=== PATIENT | male | born 1950 | race Caucasian/White ===

== ENCOUNTER → 2017-03-21 | Outpatient (CLI) | payer OTHER ==
[~2017-03-21] MED LIST: JANUMET 50-501 UDTAB PO; LOSARTAN-HCTZ1 EAC1 PO; ZOCOR10 MG PO
--- NOTE | ~2017-03-21 | US11 ---
[facility] A Service of [facility] & [facility] RADIOLOGY TEXT RESULTS PATIENT: ERIN PINEDA LOCATION: [facility] : 52 UNIT #: [id number] AGE: [address]: Domingo Wolfe MD SEX: M ORDER DR: [id number] [facility] [address] [place], [place] [address] [id number] O MR#: [id number] Acc #: [id number] NAME: ERIN PINEDA : 1950 SEX: M STUDY DATE/TIME: 03/21/2017 9:02 UNIT: [facility] ROOM: STUDY DESCRIPTION: US Aorta Duplex Complete Attending Physician: Domingo Wolfe M.D. Referring Physician: Domingo Wolfe M.D. Ordering Physician: Domingo Wolfe M.D. Primary Care Physician: Domingo Wolfe M.D. MEDICAL IMAGING REPORT This report is preliminary unless electronic signature is present EXAM Aortic Doppler INDICATIONS Aortic aneurysm screening examination. FINDINGS Patient's aorta measures within normal size limits, measuring 2.1 x 2.1 cm proximally, 1.6 x 1.5 cm within the mid portion and 1.8 x 1.5 cm distally. Iliac vessels are also within normal limits. IMPRESSION No evidence of aortic aneurysm. Dictated by... Shavon Nickerson M.D. THIS IS AN ELECTRONICALLY VERIFIED REPORT Shavon Nickerson M.D. at 03/24/2017 5:36 PM AFF/psc TD: 03/23/2017 19:09 JOB #: [id number] MEDICAL IMAGING REPORT Page 1 of 1 COPY
== END | disposition home or self-care (01) ==
LOC: CGUS 08:15
DX: Z13.6 Encounter for screening for cardiovascular disorders (principal); E78.5 Hyperlipidemia, unspecified
CPT/HCPCS: 93978